=== PATIENT | female | born 1945 | race Caucasian/White ===

== ENCOUNTER 2016-10-11 13:41 | Emergency (ER) | payer MEDICARE, MEDICAID ==
[~2016-10-11] VITALS: Ht 160 cm; Wt 61.2 kg
[~2016-10-11 13:41] MED LIST: HYDR-3326 GT; IBUP-1955 PO; LEVO75TA PO; LOSA100T15 PO; LOSA1TAB36 PO; LOSA25TA3 PO; ROSU5TAB
[2016-10-11] MEDS ORDERED: MORPHINE SULFATE INJ 2 MG/ML DISP.SYRIN IM ONE (14:00)
[2016-10-11] MEDS ORDERED: ONDANSETRON 4 MG TAB.RAPDIS PO ONE ×2 (14:00→14:30)
[2016-10-11] MEDS ORDERED: KETOROLAC TROMETHAMINE INJ 30 MG/ML VIAL IV ONE (14:00)
[2016-10-11] MEDS ORDERED: ONDANSETRON 4 MG TAB.RAPDIS ONE (14:06)
[2016-10-11] MEDS ORDERED: MORPHINE SULFATE INJ 4 MG/ML DISP.SYRIN ONE (14:06)
[2016-10-11] MEDS ORDERED: KETOROLAC TROMETHAMINE 15 MG/ML VIAL ONE (14:06)
[2016-10-11] MEDS ORDERED: HYDROCODONE/APAP 5/325MG 1 EACH TABLET ONE (14:21)
[2016-10-11] MEDS ORDERED: HYDROCODONE/APAP 5/325MG 1 EACH TABLET PO ONE (14:30)
[2016-10-11 16:36] VITALS: BP 138/87
== END 2016-10-11 16:37 | disposition home or self-care (01) ==
LOC: ER 13:43
DX: M25.562 Pain in left knee (principal); M25.561 Pain in right knee; I10 Essential (primary) hypertension; M25.511 Pain in right shoulder; W19.XXXA Unspecified fall, initial encounter; Y93.89 Activity, other specified; Y92.89 Other specified places as the place of occurrence of the external cause; Y99.8 Other external cause status
CPT/HCPCS: 71010; 72170; 73030; 73060; 73090; 73130; 73551; 99284; A4606; Q0162; 73550-TC; J1885; J2270; Z7610

== ENCOUNTER 2017-06-04 17:42 | Emergency (ER) | payer MEDICARE, MEDICAID ==
[~2017-06-04] VITALS: Ht 152.4 cm; Wt 62.1 kg
--- NOTE | 2017-06-04 18:04 | NUR ---
71 YEAR OLD FEMALE, HEALTHY LOOKING - CAME TO ER FOR EVAL. OF BILATERAL EYE PRESSURE AND HEADACHE X 1 DAY. SHE ADMITS TO BEING UPSET WITH SOMEONE TODAY
--- NOTE | 2017-06-04 18:05 | NUR ---
NO ACUTE DISTRESS; AWAITING FOR MD TO SEE. NO NEURO DEFICIT. ALERT AND ORIENTED X 4.
[2017-06-04] MEDS ORDERED: ALPRAZOLAM 0.5 MG TABLET PO ONE (18:30)
[2017-06-04] MEDS ORDERED: ALPRAZOLAM 0.5 MG TABLET ONE (18:32)
[2017-06-04] MEDS ORDERED: HYDROCODONE/APAP 5/325MG 1 EACH TABLET ONE (18:43)
--- NOTE | 2017-06-04 18:50 | NUR ---
PT IS REFUSING [facility]. STATING "IM AFRAID I MIGHT BE ALLERGIC TO IT." PT IS REQUESTING HEAD CT SCAN. DR DIAMOND AWARE.
[2017-06-04] MEDS ORDERED: HYDROCODONE/APAP 5/325MG 1 EACH TABLET PO ONE (19:00)
--- NOTE | 2017-06-04 19:40 | NUR ---
PT TO RADIOLOGY FOR HEAD CT SCAN VIA [facility].
--- NOTE | 2017-06-04 21:08 | NUR ---
Patient discharged to home in stable condition. Written and verbal after care instructions given. Patient verbalizes understanding of instruction.
[2017-06-04 21:09] VITALS: BP 120/76
== END 2017-06-04 21:10 | disposition home or self-care (01) ==
LOC: ER 17:43
DX: R51 Headache (principal); F43.9 Reaction to severe stress, unspecified; E03.9 Hypothyroidism, unspecified; E78.00 Pure hypercholesterolemia, unspecified; I10 Essential (primary) hypertension
CPT/HCPCS: 70450-TC; A4606; Z7610

== ENCOUNTER 2017-09-22 11:34 | Emergency (ER) | payer MEDICARE, MEDICAID ==
[~2017-09-22] VITALS: Ht 160 cm; Wt 63.5 kg
--- NOTE | 2017-09-22 11:34 | NUR ---
BIB FAMILY C/O NAUSEA, VOMITING AND HEADACHE X 2 DAYS. NAD NOTED. PT AAO X4, AMB WITH STEADY GAIT. RR EVEN AND UNLABORED. VSS. PENDING MD AGUIRRE.
[2017-09-22] MEDS ORDERED: ACETAMINOPHEN ES 500 MG TABLET ONE (12:29)
[2017-09-22] MEDS ORDERED: ONDANSETRON HCL/PF 4 MG/2 ML VIAL ONE (12:29)
[2017-09-22] MEDS ORDERED: IV NS 0.9% 1,000 ML BAG IV ONE (12:30)
[2017-09-22] MEDS ORDERED: ACETAMINOPHEN ES 500 MG TABLET PO ONE (12:30)
[2017-09-22] MEDS ORDERED: ONDANSETRON HCL/PF 4 MG/2 ML VIAL IVP ONE (12:30)
[2017-09-22 12:37] LABS: BASOPHILS % (AUTO) 0.9 % (0.0-2.0); EOSINOPHILS % (AUTO) 0.2 % (0.0-6.0); HEMATOCRIT 39 % (33-45); HEMOGLOBIN 13.3 g/dL (11.5-14.8); LYMPHOCYTES # (AUTO) 1.2 /CMM (0.8-4.8); LYMPHOCYTES % (AUTO) 22.4 % (20.0-44.0); MEAN CORPUSCULAR HEMOGLOBIN 31 PG (26.0-33.0); MEAN CORPUSCULAR HGB CONC 34 g/dl (31.0-36.0); MEAN CORPUSCULAR VOLUME 90 fL (82-100); MONOCYTES # (AUTO) 0.8 /CMM (0.1-1.30); MONOCYTES % (AUTO) 14.5 % (2.0-12.0); NEUTROPHILS # (AUTO) 3.2 /CMM (1.8-8.9); PLATELET COUNT (AUTO) 149 /CMM (150-450); RDW COEFFICIENT OF VARIATION 11.9 (11.5-15.0); RED BLOOD CELL COUNT(AUTO) 4.32 MIL/uL (4.0-5.2); WHITE BLOOD COUNT (AUTO) 5.2 K/uL (4.3-11.0)
[2017-09-22 12:46] LABS: CALCIUM, SERUM 8.4 mg/dL (8.5-10.1); CARBON DIOXIDE 23 mmol/L (21-32); CHLORIDE 99 mmol/L (98-107); CREATININE 1.2 mg/dL (0.6-1.3); GLUCOSE 144 mg/dL (74-106); POTASSIUM 3.6 mmol/L (3.5-5.1); SODIUM SERUM 132 mmol/L (136-145); UREA NITROGEN, BLOOD 20 mg/dL (7-18)
[2017-09-22 12:52] LABS: ALANINE AMINOTRANSFERASE 40 U/L (12-78); ALBUMIN 3.5 g/dL (3.4-5.0); ALKALINE PHOSPHATASE 55 U/L (46-116); ASPARTATE AMINOTRANSFERASE 44 U/L (15-37); BILIRUBIN,DIRECT 0.1 mg/dL (0.0-0.2); BILIRUBIN,TOTAL 0.3 mg/dL (0.2-1.0); LIPASE 166 U/L (73-393); TOTAL PROTEIN, SERUM 7.2 g/dL (6.4-8.2)
[2017-09-22 12:54] LABS: TROPONIN I < 0.017 ng/mL (0.00-0.056)
[2017-09-22 12:59] LABS: APPEARANCE,URINE Clear (CLEAR); BILIRUBIN,URINE Negative (NEGATIVE); BLOOD, URINE Moderate Ery/uL (NEGATIVE); COLOR,URINE Yellow (YELLOW); KETONES,URINE Negative (NEGATIVE); LEUKOCYTE ESTERASE ,URINE Negative (NEGATIVE); NITRITE, URINE Negative (NEGATIVE); PH,URINE 5.5 (5.0-8.0); PROTEIN,URINE Trace mg/dl (NEGATIVE); UGLUCOSE Negative (NEGATIVE); UROBILINOGEN,URINE 0.2 EU/dL (0.2)
[2017-09-22] MEDS ORDERED: PRAV80TA21 PO (13:10)
[2017-09-22] MEDS ORDERED: ASPI-1152 PO (13:10)
[2017-09-22] MEDS ORDERED: PREG100C PO (13:10)
[2017-09-22] MEDS ORDERED: CHOL100062 PO (13:10)
[2017-09-22 13:28] LABS: BACTERIA,URINE None seen /HPF (None Seen); SQUAMOUS EPITHELIAL CELL,UR Rare /HPF (None Seen); WBC,URINE NONE SEEN /HPF (0-3)
[2017-09-22 14:25] VITALS: BP 135/71
== END 2017-09-22 14:27 | disposition home or self-care (01) ==
LOC: ER 11:35
DX: R11.2 Nausea with vomiting, unspecified (principal); R00.1 Bradycardia, unspecified; I10 Essential (primary) hypertension; E03.9 Hypothyroidism, unspecified; Z79.82 Long term (current) use of aspirin
CPT/HCPCS: 36415; 71010; 80048; 80076; 81001; 83690; 84443; 84484; 85025; 93005; 96361; 96374; 99285; A4606; J2405; J7030; 81000-TC; Z7610

== ENCOUNTER 2018-10-04 11:47 | Emergency (ER) | payer MEDICARE, MEDICAID ==
[~2018-10-04] VITALS: Ht 152.4 cm; Wt 62.6 kg
[~2018-10-04 11:47] MED LIST changes: +ASPI-1152 PO; +CHOL100062 PO; -HYDR-3326 GT; -IBUP-1955 PO; -LOSA100T15 PO; -LOSA1TAB36 PO; +PRAV80TA21 PO; +PREG100C PO; -ROSU5TAB
--- NOTE | 2018-10-04 12:00 | NUR ---
PT BIB SELF C/O N/V/D X 12 HRS WITH EPIGASTRIC PAIN AND HEADACHE, PT IS AAOX4, V/S STABLE, NOT IN RESPIRATORY DISTRESS, KEPT RESTED AND COMFORTABLE.
--- NOTE | 2018-10-04 12:21 | NUR ---
PT LABS DRAWNED AND SENT TO LAB, AWAITING RESULTS
[2018-10-04] MEDS ORDERED: KETOROLAC TROMETHAMINE 15 MG/ML VIAL ONE (12:23)
[2018-10-04] MEDS ORDERED: ONDANSETRON HCL/PF 4 MG/2 ML VIAL ONE (12:23)
[2018-10-04 12:24] LABS: BASOPHILS # (AUTO) 0.1 /CMM (0.0-0.2); BASOPHILS % (AUTO) 1.2 % (0.0-2.0); EOSINOPHILS % (AUTO) 0.5 % (0.0-6.0); HEMATOCRIT 41 % (33-45); HEMOGLOBIN 13.3 g/dL (11.5-14.8); LYMPHOCYTES # (AUTO) 1.6 /CMM (0.8-4.8); MEAN CORPUSCULAR HGB CONC 33 g/dl (31.0-36.0); MEAN CORPUSCULAR VOLUME 94 fL (82-100); MONOCYTES # (AUTO) 0.3 /CMM (0.1-1.30); MONOCYTES % (AUTO) 6.5 % (2.0-12.0); NEUTROPHILS # (AUTO) 2.8 /CMM (1.8-8.9); NEUTROPHILS % (AUTO) 58.8 % (43.0-81.0); PLATELET COUNT (AUTO) 184 /CMM (150-450); RED BLOOD CELL COUNT(AUTO) 4.35 MIL/uL (4.0-5.2); WHITE BLOOD COUNT (AUTO) 4.8 K/uL (4.3-11.0)
[2018-10-04] MEDS ORDERED: ONDANSETRON HCL/PF 4 MG/2 ML VIAL IVP ONE (12:30)
[2018-10-04] MEDS ORDERED: IV NS 0.9% 1,000 ML BAG IV ONE (12:30)
[2018-10-04] MEDS ORDERED: KETOROLAC TROMETHAMINE INJ 30 MG/ML VIAL IV ONE (12:30)
--- NOTE | 2018-10-04 12:31 | NUR ---
PT IS WHEELED TO CT SCAN VIA [facility].
[2018-10-04 12:41] LABS: CALCIUM, SERUM 8.7 mg/dL (8.5-10.1); CARBON DIOXIDE 25 mmol/L (21-32); CHLORIDE 105 mmol/L (98-107); CREATININE 0.9 mg/dL (0.6-1.3); GLUCOSE 133 mg/dL (74-106); POTASSIUM 4.3 mmol/L (3.5-5.1); SODIUM SERUM 140 mmol/L (136-145); UREA NITROGEN, BLOOD 15 mg/dL (7-18)
[2018-10-04 12:47] LABS: ALANINE AMINOTRANSFERASE 30 U/L (12-78); ALBUMIN 3.6 g/dL (3.4-5.0); ALKALINE PHOSPHATASE 68 U/L (46-116); ASPARTATE AMINOTRANSFERASE 27 U/L (15-37); BILIRUBIN,DIRECT 0.1 mg/dL (0.0-0.2); BILIRUBIN,TOTAL 0.6 mg/dL (0.2-1.0); LIPASE 94 U/L (73-393); TOTAL PROTEIN, SERUM 7.1 g/dL (6.4-8.2)
--- NOTE | 2018-10-04 13:50 | NUR ---
IV removed. Catheter intact and site benign. Pressure and 4x4 applied to site. No bleeding noted. Patient discharged to home in stable condition. Written and verbal after care instructions given. Patient verbalizes understanding of instruction.
[2018-10-04] MEDS ORDERED: ACETAMINOPHEN 325 MG TABLET PO ONE (14:00)
[2018-10-04] MEDS ORDERED: ACETAMINOPHEN 325 MG TABLET ONE (14:01)
[2018-10-04 14:12] VITALS: BP 124/69
== END 2018-10-04 14:13 | disposition home or self-care (01) ==
LOC: ER 11:50
DX: A08.4 Viral intestinal infection, unspecified (principal); R19.7 Diarrhea, unspecified; I10 Essential (primary) hypertension; E78.00 Pure hypercholesterolemia, unspecified; E03.9 Hypothyroidism, unspecified; Z79.82 Long term (current) use of aspirin
CPT/HCPCS: 36415; 80048-TC; 80076-TC; 83690-TC; 85025-TC; 87400; J1885; J2405; J7030

== ENCOUNTER 2018-12-16 12:11 | Emergency (ER) | payer MEDICARE, MEDICAID ==
[~2018-12-16] VITALS: Ht 152.4 cm; Wt 60.8 kg
--- NOTE | 2018-12-16 12:11 | NUR ---
BIB SON W C/O DIZZINESS/NAUSEA SINCE SHE WAS STARTED ON EXELON PATCH, SX GOT WORSE AFTER DOSE WAS INCREASED, VOMITING AND ABDOMINAL PAIN SINCE YESTERDAY. TO ER BED 3, HOOKED TO MONITOR, AWAITING MD AGUIRRE
--- NOTE | 2018-12-16 12:45 | NUR ---
TOSHIA ROSENBERG AT BEDSIDE
[2018-12-16 13:00] LABS: BASOPHILS % (AUTO) 0.7 % (0.0-2.0); EOSINOPHILS % (AUTO) 0.1 % (0.0-6.0); HEMATOCRIT 42 % (33-45); HEMOGLOBIN 14.3 g/dL (11.5-14.8); LYMPHOCYTES # (AUTO) 1.5 /CMM (0.8-4.8); LYMPHOCYTES % (AUTO) 26.1 % (20.0-44.0); MEAN CORPUSCULAR HGB CONC 34 g/dl (31.0-36.0); MEAN CORPUSCULAR VOLUME 94 fL (82-100); MONOCYTES # (AUTO) 0.2 /CMM (0.1-1.30); MONOCYTES % (AUTO) 4.3 % (2.0-12.0); NEUTROPHILS % (AUTO) 68.8 % (43.0-81.0); PLATELET COUNT (AUTO) 206 /CMM (150-450); RED BLOOD CELL COUNT(AUTO) 4.51 MIL/uL (4.0-5.2); WHITE BLOOD COUNT (AUTO) 5.8 K/uL (4.3-11.0)
[2018-12-16] MEDS ORDERED: IV NS 0.9% 1,000 ML BAG IV ONE (13:00)
[2018-12-16] MEDS ORDERED: KETOROLAC TROMETHAMINE INJ 30 MG/ML VIAL IV ONE (13:00)
[2018-12-16] MEDS ORDERED: ONDANSETRON HCL/PF - ER 4 MG/2 ML VIAL IV ONE (13:00)
[2018-12-16] MEDS ORDERED: ONDANSETRON HCL/PF 4 MG/2 ML VIAL ONE (13:01)
[2018-12-16 13:07] LABS: CALCIUM, SERUM 9.1 mg/dL (8.5-10.1); CARBON DIOXIDE 28 mmol/L (21-32); CHLORIDE 99 mmol/L (98-107); CREATININE 0.9 mg/dL (0.6-1.3); GLUCOSE 131 mg/dL (74-106); LIPASE 110 U/L (73-393); POTASSIUM 4.1 mmol/L (3.5-5.1); SODIUM SERUM 134 mmol/L (136-145); UREA NITROGEN, BLOOD 14 mg/dL (7-18)
--- NOTE | 2018-12-16 13:53 | NUR ---
LEFT A MESSAGE FOR DR JORDAN AT [phone]
--- NOTE | 2018-12-16 14:28 | NUR ---
IV removed. Catheter intact and site benign. Pressure and 4x4 applied to site. No bleeding noted.Patient discharged to home in stable condition. Written and verbal after care instructions given. Patient verbalizes understanding of instruction.
[2018-12-16 14:34] VITALS: BP 138/74
== END 2018-12-16 14:35 | disposition home or self-care (01) ==
LOC: ER 12:13
DX: R11.2 Nausea with vomiting, unspecified (principal); R00.1 Bradycardia, unspecified; I10 Essential (primary) hypertension; G30.9 Alzheimer's disease, unspecified; E78.00 Pure hypercholesterolemia, unspecified; E03.9 Hypothyroidism, unspecified; I44.4 Left anterior fascicular block; Z79.82 Long term (current) use of aspirin
CPT/HCPCS: 36415; 80048; 83690; 84484; 85025; 93005 ×2; 96361; 96374; 99284; A4606; J2405 ×2; J7030

== ENCOUNTER → 2023-05-15 | Emergency (ER) | payer MEDICARE, OTHER ==
[~2023-05-15] VITALS: Ht 162.6 cm; Wt 63.5 kg
[~2023-05-15] MED LIST changes: -ASPI-1152 PO; +ASPI-1420 PO; +IV NS 0.9% 1,000 ML BAG IV ONE
[2023-05-15 20:31] LABS: BASOPHILS # (AUTO) 0.1 K/uL (0.0-0.2); EOSINOPHILS % (AUTO) 0.5 % (0.0-6.0); HEMATOCRIT 44 % (33-45); HEMOGLOBIN 14.7 g/dL (11.5-14.8); LYMPHOCYTES # (AUTO) 2.8 K/uL (0.8-4.8); LYMPHOCYTES % (AUTO) 31.2 % (20.0-44.0); MEAN CORPUSCULAR HEMOGLOBIN 31 PG (26.0-33.0); MEAN CORPUSCULAR HGB CONC 33 g/dl (31.0-36.0); MEAN CORPUSCULAR VOLUME 93 fL (82-100); MONOCYTES # (AUTO) 0.6 K/uL (0.1-1.30); MONOCYTES % (AUTO) 7.1 % (2.0-12.0); NEUTROPHILS # (AUTO) 5.4 K/uL (1.8-8.9); NEUTROPHILS % (AUTO) 60.2 % (43.0-81.0); PLATELET COUNT (AUTO) 213 K/uL (150-450); RED BLOOD CELL COUNT(AUTO) 4.78 MIL/uL (4.0-5.2); RED CELL DISTRIBUTION WIDTH 12.9 % (11.5-15.0)
[2023-05-15 20:53] LABS: ALANINE AMINOTRANSFERASE 19 U/L (12-78); ALBUMIN 3.5 g/dL (3.4-5.0); ALKALINE PHOSPHATASE 81 U/L (46-116); ASPARTATE AMINOTRANSFERASE 24 U/L (15-37); BILIRUBIN,DIRECT 0.1 mg/dL (0.0-0.2); BILIRUBIN,TOTAL 0.5 mg/dL (0.2-1.0); CALCIUM, SERUM 9.5 mg/dL (8.5-10.1); CARBON DIOXIDE 24 mmol/L (21-32); CHLORIDE 106 mmol/L (98-107); CREATININE 1.3 mg/dL (0.6-1.3); GLUCOSE 153 mg/dL (74-106); NT-PRO BNP 289 pg/mL (0-125); POTASSIUM 3.8 mmol/L (3.5-5.1); SODIUM SERUM 140 mmol/L (136-145); TOTAL PROTEIN, SERUM 7.2 g/dL (6.4-8.2); UREA NITROGEN, BLOOD 19 mg/dL (7-18)
[2023-05-15 21:31] VITALS: BP 120/81; TEMP 98.2; O2SAT 95
== END | disposition left against medical advice (07) ==
LOC: ER 20:03
DX: R53.1 Weakness (principal); I10 Essential (primary) hypertension; E78.00 Pure hypercholesterolemia, unspecified; F03.90 Unspecified dementia, unspecified severity, without behavioral disturbance, psychotic disturbance, mood disturbance, and anxiety
CPT/HCPCS: 99285; 96360; 71045; 93005; 85025; 80048; 80076; 36415; 84484; 83880; 82962; J7030

== ENCOUNTER 2025-04-17 04:24 | Inpatient (IN) | payer MEDICARE, OTHER ==
[~2025-04-17] VITALS: Ht 157.5 cm; Wt 56.7 kg
[~2025-04-17 04:24] MED LIST changes: -IV NS 0.9% 1,000 ML BAG IV ONE
[2025-04-17] MEDS ORDERED: LEVETIRACETAM (500MG) 500 MG/5 ML VIAL IV ONE (04:45)
[2025-04-17] MEDS: LEVETIRACETAM (500MG) 500 MG in IV NS 0.9% 100 ML IV SCH ×2 (04:47→20:57)
[2025-04-17 04:58] LABS: PLATELET COUNT (AUTO) 207 K/uL (150-450); RED BLOOD CELL COUNT(AUTO) 4.83 MIL/uL (4.0-5.2); RED CELL DISTRIBUTION WIDTH 13.6 % (11.5-15.0); WHITE BLOOD COUNT (AUTO) 7.8 K/uL (4.3-11.0)
[2025-04-17] MEDS ORDERED: LIDOCAINE 2% JEL UROJET 10 ML MM ONE (05:00)
[2025-04-17 05:01] LABS: INR 1.3 (0.91-1.10)
[2025-04-17 05:08] LABS: CALCIUM, SERUM 9.3 mg/dL (8.5-10.1); CREATININE 1.1 mg/dL (0.6-1.3); SODIUM SERUM 142 mmol/L (136-145); UREA NITROGEN, BLOOD 20 mg/dL (7-18)
[2025-04-17] MEDS ORDERED: LEVETIRACETAM (500MG) 500 MG in IV NS 0.9% 100 ML IV ONE (05:28)
[2025-04-17 05:49] LABS: ASPARTATE AMINOTRANSFERASE 25 U/L (15-37); TOTAL PROTEIN, SERUM 7.5 g/dL (6.4-8.2)
[2025-04-17 06:00] LABS: ALCOHOL, BLOOD < 3 mg/dL (0-10)
[2025-04-17] MEDS ORDERED: MAGNESIUM HYDROXIDE 30 ML UDC PO PRN (06:30)
[2025-04-17] MEDS ORDERED: ONDANSETRON HCL/PF 4 MG/2 ML VIAL IVP PRN (06:30)
[2025-04-17] MEDS ORDERED: ACETAMINOPHEN 325 MG TABLET PO PRN ×2 (06:30→11:30)
[2025-04-17] MEDS ORDERED: Z GUARD REMEDY 4 OZ OINT TP PRN (06:30)
[2025-04-17] MEDS ORDERED: MAG HYDROX/AL HYDROX/SIMETH 30 ML UDC PO PRN (06:30)
[2025-04-17] MEDS: LEVOTHYROXINE SODIUM 75 MCG TABLET PO SCH (07:30)
[2025-04-17] MEDS ORDERED: MULT-594 PO (07:49)
[2025-04-17] MEDS ORDERED: VITS42.53 TP (07:49)
[2025-04-17] MEDS ORDERED: ROSU10TA2 PO (07:49)
[2025-04-17] MEDS ORDERED: ASCO500T10 PO (07:49)
[2025-04-17] MEDS ORDERED: MELA1TAB2 PO (07:49)
[2025-04-17] MEDS ORDERED: ACET325T53 PO (07:49)
[2025-04-17] MEDS ORDERED: MAGN400O6 PO (07:49)
[2025-04-17] MEDS ORDERED: LEVO88TA5 PO (07:49)
[2025-04-17] MEDS: ASPIRIN EC 81 MG TABLET.DR PO SCH (09:00)
[2025-04-17] MEDS: LOSARTAN POTASSIUM 25 MG TABLET PO SCH (09:00)
[2025-04-17] MEDS: CHOLECALCIFEROL 1,000 UNIT TABLET (VIT D3) PO SCH (09:00)
[2025-04-17] MEDS: IV NS 0.9% 1,000 ML IV PRN (11:06)
[2025-04-17] MEDS: ASCORBIC ACID 500 MG TABLET PO SCH (11:30)
[2025-04-17] MEDS: MULTIVIT W/MINERALS 1 TAB TABLET PO SCH (11:30)
[2025-04-17 12:00] VITALS: BP 153/76; TEMP 97.7; O2SAT 99
[2025-04-17 16:00] VITALS: BP 154/109; TEMP 97.7; O2SAT 96
[2025-04-17 20:00] VITALS: BP 168/98; TEMP 98.8; O2SAT 99
[2025-04-17] MEDS: ATORVASTATIN 10 MG TABLET PO SCH (21:04)
[2025-04-17] MEDS: PREGABALIN 100 MG CAPSULE PO SCH (21:04)
[2025-04-17] MEDS ORDERED: ATORVASTATIN 10 MG TABLET PO SCH (22:00)
[2025-04-18] VITALS: BP 168/98; TEMP 98.8; O2SAT 99
[2025-04-18 04:00] VITALS: BP 168/98; TEMP 98.8; O2SAT 99
[2025-04-18 08:00] VITALS: BP 160/144; TEMP 97; O2SAT 94
[2025-04-18 08:07] LABS: APPEARANCE,URINE CLEAR (CLEAR); BLOOD, URINE TRACE-INTA Ery/uL (NEGATIVE); LEUKOCYTE ESTERASE ,URINE TRACE (NEGATIVE); NITRITE, URINE POSITIVE (NEGATIVE); UGLUCOSE NEGATIVE (NEGATIVE)
[2025-04-18 08:20] LABS: AMPHETAMINE, URINE NEGATIVE (NEGATIVE); BARBITURATE, URINE NEGATIVE (NEGATIVE); BENZODIAZEPINE, URINE NEGATIVE (NEGATIVE); CANNABINOID, URINE NEGATIVE (NEGATIVE); COCCAINE, URINE NEGATIVE (NEGATIVE); OPIATE, URINE NEGATIVE (NEGATIVE)
[2025-04-18 08:22] LABS: ADD URINE CULTURE YES; SQUAMOUS EPITHELIAL CELL,UR 0-2 /HPF (None Seen)
[2025-04-18] MEDS ORDERED: CEPH500C2 PO (08:53)
[2025-04-18] MEDS: CEFTRIAXONE 1 G in IV D5W 50 ML IV SCH (09:38)
[2025-04-18 12:00] VITALS: BP 160/111; TEMP 97.5; O2SAT 94
[2025-04-18 16:00] VITALS: BP 138/114; TEMP 98.1; O2SAT 97
[2025-04-18 20:00] VITALS: BP 139/86; TEMP 98.2; O2SAT 99
[2025-04-19] VITALS (7 sets, daily range): BP systolic 97–153; BP diastolic 57–91; TEMP 97–98.4; O2SAT 94–99
[2025-04-20 04:00] VITALS: BP 107/64; TEMP 98.8; O2SAT 99
[2025-04-20] MEDS: LEVETIRACETAM SOL (5 ML) 100 MG/ML UDC PO SCH (08:27)
[2025-04-20] MEDS ORDERED: LEVE500T9 PO (08:36)
[2025-04-20 12:00] VITALS: BP 149/79; TEMP 97.9; O2SAT 96
== END 2025-04-20 14:10 | DRG 100 ==
LOC: ER 04:26 → TELE1 07:24 → MEDSG1 04-19 12:43
PROVIDERS: ADMIT Nurse Practitioner Acute Care; ATTEND Nurse Practitioner Acute Care
DX: R56.9 Unspecified convulsions (principal); I21.A1 Myocardial infarction type 2; N39.0 Urinary tract infection, site not specified; G30.9 Alzheimer's disease, unspecified; F02.80 Dementia in other diseases classified elsewhere, unspecified severity, without behavioral disturbance, psychotic disturbance, mood disturbance, and anxiety; E78.00 Pure hypercholesterolemia, unspecified; I10 Essential (primary) hypertension; E03.9 Hypothyroidism, unspecified; Z20.822 Contact with and (suspected) exposure to COVID-19; Z66 Do not resuscitate; Z74.01 Bed confinement status; B96.89 Other specified bacterial agents as the cause of diseases classified elsewhere; Z79.82 Long term (current) use of aspirin; Z79.890 Hormone replacement therapy; Z79.899 Other long term (current) drug therapy
CPT/HCPCS: 36415; 70450-TC; 71045-TC; 72125-TC; 80048-TC; 80076-TC; 81001; 84443-TC; 84484-TC; 85025-TC; 85730-TC; 87081-TC; 87086-TC; 92526; 92611-TC; A4223; G0378; G0480; J0696; J1953; J7030; J7060